=== PATIENT | male | born 1950 | race Caucasian/White ===

== ENCOUNTER → 2017-03-10 | Outpatient (CLI) | payer MEDICARE, OTHER ==
[~2017-03-10] MED LIST: AMOXICILLI250 MG/52 PO; ASPI-COR81 M1 PO; ATENOLOL25 M1 PO; CARAFATE1 GM/10 ML PO; CEFTIN500 MG PO; CIPRO 500MG TA500 MG PO; CLARITHROM250 MG/5 M PO; DRISDOL50000 IU PO; HABITROL21 MG/24 H TD; HYDROCHLOROTHIA25 M1 PO; INDAPAMIDE PO; LISINOPRIL40 MG PO; MOTRIN 600MG.600 MG PO; PIOGLITAZONE HY30 MG PO; SIMVASTATIN20 MG PO
--- NOTE | 2017-03-10 12:30 | ST MODIFIED BARIUM SWALLOW ---
SUBJECTIVE-DYSPHAGIA Date: 03/10/17 Time: 1100 Eval Type: Initial Certification - Admitted Date: Primary Diagnosis: Reason for Consult: DYSPHAGIA Pt/Caregiver Concerns: COUGHING DURING MEALS AND ON OWN SALIVA Onset of symptoms- 7-8 MONTHS AGO Symptoms have worsened? YES improved? NO resolved? NO since onset. Current Diet: REGULAR/THINS Allergies Coded Allergies: No Known Allergies (08/26/16) Home Medications Active Scripts IBUPROFEN (Motrin 600MG) 600 MG PO Q6HP PRN PAIN #20 TAB Prov: 09/08/15 Amoxicillin Trihydrate (Amoxicillin Oral Susp) 1,000 MG PO BIDD 14 Days Prov: 09/19/15 Clarithromycin (Clarithromycin Oral Susp) 500 MG PO BIDD 14 Days Prov: 09/19/15 Sucralfate (Carafate Oral Susp) 1 GM PO ACHS 14 Days Prov: 09/19/15 Nicotine (Nicotine Patch) 21 MG TD DAILYP PRN SMOKING CESSATION 30 Days Prov: 09/19/15 Reported Medications HYDROCHLOROTHIAZIDE (Hydrochlorothiazide) 25 MG PO DAILY 30 Days ERGOCALCIFEROL (VITAMIN D2) (Drisdol) 50,000 PO EVERY WEDNESDAY Atenolol 25 MG PO BID #60 30 Days Aspirin (Aspi-Cor) 81 MG PO DAILY Indapamide (Indapamide 2.5MG Tablet) 2.5 MG PO DAILY #30 30 Days Lisinopril (Lisinopril 40MG) 40 MG PO DAILY #30 30 Days Simvastatin 20 MG PO QHS #30 30 Days PIOGLITAZONE HCL (Pioglitazone HCl) 30 MG PO QHS #30 30 Days Is this assessment r/t stroke? No OBJECTIVE COMMUNICATION/COGNITION Barriers to communication/cog? No ORAL-MOTOR STRUCTURE/FUNCTION Structure/Function WFL: Labial, Buccal, Lingual, Velar, Mandibular. Facial Asymmetry Left Laryngeal Function Strong: Voluntary Cough, Throat Clearing. Vocal Quality Wet Dentition DENTURE PLATE-TOP OWN TEETH-BOTTOM RESPIRATORY STATUS/HISTORY Is resp status/hx a concern? No DYSPHAGIA SIGNS W/CONSISTENCY Any S/S of Dysphagia? Yes VIDEO SWALLOW REPORT Radiologist: Dawson SHARP,Bienvenido Pavon Level of consciousness: Alert Position (degrees): 90 ORAL STAGE Consistencies used for study: Thin, Pudding, Mechanical Soft, Solid, Pill, MIXED - WFL: Bolus Formation:, Initiation of Swallow:. - No: Jose.spilled into pharynx, Oral Residue. PHARYNGEAL STAGE Consistencies used for study: Thin, Pudding, Mechanical Soft, Solid, Pill, MIXED Delayed Swallow Reflex? No Epiglottic Closure WFL Penetration-Laryngeal Vestibul Yes (FLASH) - Aspiration? No Pharyngeal Residue? No ASSESSMENT/PLAN ASSESSMENT Impression Mr. Elder, a 66 year old male, was referred for a MBS by his physician, Tanya Cummings. Mr. 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 He reports incrase in drooling and difficulty swallowing that began approximately 7-8 months ago. It was noted Mr. Elder has wet vocal quality at rest before any consistencies were presented. Mr. Elder was given the following consistenices: thins via straw and open cup , pudding, mechanical soft, regular, mixed, and pill with thin wash. The following signs of dysphagia were noted: flash penetration with all consistencies but aspiration was not noted. The following compensatory strategies were implimented: chin tuck and head turn to left. No improvements were noted. At this time, it is recommended that diet remain the same but outpatient therapy for dysphagia is recommended. PLAN SHORT TERM GOALS Aspiration During/mistime of closure- Patient will improve the rate of laryngeal elevation/timing of closure to keep food from falling into the airway during the swallow. Timing Objectives: Patient will control bolus size to small bite/sip without cues on 3 of 3 trials. (c) Patient will empty mouth before next bite with/without cues on 3 of 3 trials. (c ) Patient will use straw for liquid presentations with/without cues on 3 of 3 trials. (c) Patient will use super-supraglottic swallow for all consistencies with/without cues on 3 of 3 trials. (c,f) (Note: Improves speed of onset of laryngesl elevation.) Patient will demonstrate Janie maneuver for [] consistencies with/without cues on [] of [] trials. (c,f) (Note: Normalizes timing of pharyngeal swallow events.) Anticipate reaching in # wks 4 [facility] GOALS Patient will safely consume regular diet with thins liquids without complications such as aspiration pneumonia. Anticipate reaching in # wks 4 RECOMMENDATIONS Speech Therapy indicated Yes SWALLOW GUIDELINES Standard Aspiration Prec. PATIENT/CAREGIVER EDUCATION Able-recall/restate what told? Yes PLAN See Daily/Progress Note for Initial HEP and Patient Care Instructions Patient will be seen for 1-2 times per week for 4 weeks. Patient/Guardian verbally acknowledges understanding of treatment program and consents to further treatment: yes Patient/Guardian verbally acknowledges understanding of diagnosis, prognosis, and goals for treatment: yes PHYSICIAN CERTIFICATION: I certify that the above Speech Therapy services are required, authorized, and reviewed every 30 days. Rehab Medicare G Code Plan Medicare/G Code eligible? Yes Therapy Discipline Plan: ALL SOURCE COLLECTION MANAGER PLAN OF CARE Recommendation for therapy: Outpatient ALL SOURCE COLLECTION MANAGER G Code Current Status: SWALLOWING (G8996) Current Status Modifier: 1%-19% IMPAIRED (CI) G Code Goal Status: SWALLOWING (G8997) Goal Status Modifier: 1%-19% IMPAIRED (CI) G Code Discharge Status: SWALLOWING (G8998) Discharge Status Modifier: 1%-19% IMPAIRED (CI) If pt's [facility] benefits exhausted If patient's Medicare benefits are exhausted, please review: #Min Spent: 40 at [id number]
--- NOTE | 2017-03-10 12:30 | ST MODIFIED BARIUM SWALLOW ---
SUBJECTIVE-DYSPHAGIA Date: 03/10/17 Time: 1100 Eval Type: Initial Certification - Admitted Date: Primary Diagnosis: Reason for Consult: DYSPHAGIA Pt/Caregiver Concerns: COUGHING DURING MEALS AND ON OWN SALIVA Onset of symptoms- 7-8 MONTHS AGO Symptoms have worsened? YES improved? NO resolved? NO since onset. Current Diet: REGULAR/THINS Allergies Coded Allergies: No Known Allergies (08/26/16) Home Medications Active Scripts IBUPROFEN (Motrin 600MG) 600 MG PO Q6HP PRN PAIN #20 TAB Prov: 09/08/15 Amoxicillin Trihydrate (Amoxicillin Oral Susp) 1,000 MG PO BIDD 14 Days Prov: 09/19/15 Clarithromycin (Clarithromycin Oral Susp) 500 MG PO BIDD 14 Days Prov: 09/19/15 Sucralfate (Carafate Oral Susp) 1 GM PO ACHS 14 Days Prov: 09/19/15 Nicotine (Nicotine Patch) 21 MG TD DAILYP PRN SMOKING CESSATION 30 Days Prov: 09/19/15 Reported Medications HYDROCHLOROTHIAZIDE (Hydrochlorothiazide) 25 MG PO DAILY 30 Days ERGOCALCIFEROL (VITAMIN D2) (Drisdol) 50,000 PO EVERY WEDNESDAY Atenolol 25 MG PO BID #60 30 Days Aspirin (Aspi-Cor) 81 MG PO DAILY Indapamide (Indapamide 2.5MG Tablet) 2.5 MG PO DAILY #30 30 Days Lisinopril (Lisinopril 40MG) 40 MG PO DAILY #30 30 Days Simvastatin 20 MG PO QHS #30 30 Days PIOGLITAZONE HCL (Pioglitazone HCl) 30 MG PO QHS #30 30 Days Is this assessment r/t stroke? No OBJECTIVE COMMUNICATION/COGNITION Barriers to communication/cog? No ORAL-MOTOR STRUCTURE/FUNCTION Structure/Function WFL: Labial, Buccal, Lingual, Velar, Mandibular. Facial Asymmetry Left Laryngeal Function Strong: Voluntary Cough, Throat Clearing. Vocal Quality Wet Dentition DENTURE PLATE-TOP OWN TEETH-BOTTOM RESPIRATORY STATUS/HISTORY Is resp status/hx a concern? No DYSPHAGIA SIGNS W/CONSISTENCY Any S/S of Dysphagia? Yes VIDEO SWALLOW REPORT Radiologist: Dawson SHARP,Bienvenido Pavon Level of consciousness: Alert Position (degrees): 90 ORAL STAGE Consistencies used for study: Thin, Pudding, Mechanical Soft, Solid, Pill, MIXED - WFL: Bolus Formation:, Initiation of Swallow:. - No: Jose.spilled into pharynx, Oral Residue. PHARYNGEAL STAGE Consistencies used for study: Thin, Pudding, Mechanical Soft, Solid, Pill, MIXED Delayed Swallow Reflex? No Epiglottic Closure WFL Penetration-Laryngeal Vestibul Yes (FLASH) - Aspiration? No Pharyngeal Residue? No ASSESSMENT/PLAN ASSESSMENT Impression Mr. Elder, a 66 year old male, was referred for a MBS by his physician, Tanya Cummings. Mr. 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 He reports incrase in drooling and difficulty swallowing that began approximately 7-8 months ago. It was noted Mr. Elder has wet vocal quality at rest before any consistencies were presented. Mr. Elder was given the following consistenices: thins via straw and open cup , pudding, mechanical soft, regular, mixed, and pill with thin wash. The following signs of dysphagia were noted: flash penetration with all consistencies but aspiration was not noted. The following compensatory strategies were implimented: chin tuck and head turn to left. No improvements were noted. At this time, it is recommended that diet remain the same but outpatient therapy for dysphagia is recommended. PLAN SHORT TERM GOALS Aspiration During/mistime of closure- Patient will improve the rate of laryngeal elevation/timing of closure to keep food from falling into the airway during the swallow. Timing Objectives: Patient will control bolus size to small bite/sip without cues on 3 of 3 trials. (c) Patient will empty mouth before next bite with/without cues on 3 of 3 trials. (c ) Patient will use straw for liquid presentations with/without cues on 3 of 3 trials. (c) Patient will use super-supraglottic swallow for all consistencies with/without cues on 3 of 3 trials. (c,f) (Note: Improves speed of onset of laryngesl elevation.) Patient will demonstrate Janie maneuver for [] consistencies with/without cues on [] of [] trials. (c,f) (Note: Normalizes timing of pharyngeal swallow events.) Anticipate reaching in # wks 4 [facility] GOALS Patient will safely consume regular diet with thins liquids without complications such as aspiration pneumonia. Anticipate reaching in # wks 4 RECOMMENDATIONS Speech Therapy indicated Yes SWALLOW GUIDELINES Standard Aspiration Prec. PATIENT/CAREGIVER EDUCATION Able-recall/restate what told? Yes PLAN See Daily/Progress Note for Initial HEP and Patient Care Instructions Patient will be seen for 1-2 times per week for 4 weeks. Patient/Guardian verbally acknowledges understanding of treatment program and consents to further treatment: yes Patient/Guardian verbally acknowledges understanding of diagnosis, prognosis, and goals for treatment: yes PHYSICIAN CERTIFICATION: I certify that the above Speech Therapy services are required, authorized, and reviewed every 30 days. Rehab Medicare G Code Plan Medicare/G Code eligible? Yes Therapy Discipline Plan: SAFETY BELT INSTALLER PLAN OF CARE Recommendation for therapy: Outpatient SAFETY BELT INSTALLER G Code Current Status: SWALLOWING (G8996) Current Status Modifier: 1%-19% IMPAIRED (CI) G Code Goal Status: SWALLOWING (G8997) Goal Status Modifier: 1%-19% IMPAIRED (CI) G Code Discharge Status: SWALLOWING (G8998) Discharge Status Modifier: 1%-19% IMPAIRED (CI) If pt's [facility] benefits exhausted If patient's Medicare benefits are exhausted, please review: #Min Spent: 40 at [phone]
--- NOTE | 2017-03-10 15:26 | RADIOLOGY REPORT PS360 ---
ESOPHAGUS W/CINERADIOGRAPHY: 03/10/2017 10:39 AM CLINICAL HISTORY: Dysphasia ORDERING PHYSICIAN: Tanya Cummings APRN PATIENT AGE: 66 years COMPARISON: None. TECHNIQUE: Patient administered varying consistencies of barium contrast, while viewed in lateral position under real-time fluoroscopy with cine recording. FLUOROSCOPY TIME: 2 minutes and 22 seconds The study was performed in conjunction with speech pathologist. Please see that report & recommendations. FINDINGS: Patient was given varying consistencies of barium. This consisted of thin with straw, open cup, pudding, mechanical soft, irregular, mixed, and pill with thin washed. Last penetration with all consistencies. No aspiration no previous noted with chin tach and head turned to the left IMPRESSION: Flash penetration with all consistencies Please see speech pathologist report and recommendations.
== END ==
LOC: RAD 10:38
DX: R13.10 Dysphagia, unspecified (principal)
CPT/HCPCS: G8996; G8997; G8998